=== PATIENT | male | born 1950 | race Caucasian/White ===

== ENCOUNTER 2019-07-02 10:35 | Observation (INO) ==
[2019-07-02] MEDS ORDERED: DILTIAZEM HCL 5 MG/ML VIAL IV ONE (10:59)
[2019-07-02] MEDS ORDERED: ACETAMINOPHEN 500 MG TABLET PO ONE (11:02)
[2019-07-02 11:09] LABS: Hematocrit 51.5 % (42.0-52.0); Hemoglobin 16.9 gm/dL (13.5-18.0); Mean Cell Volume 91.8 fl (78-100); Mean Corpuscular Hemoglobin 30.1 pg (27-31); Mean Corpuscular Hgb Conc 32.8 g/dl (32-36); Mean Platelet Volume 10.3 fl (8-11.3); Neutrophil # 14.6 K/mm3 (1.3-6.0); Neutrophil % 90.6 % (42-75.0); Platelet Count 150 K/mm3 (150-450); Red Blood Count 5.61 M/mm3 (4.7-6.0); Red Cell Distribution Width 13.7 % (11.5-14.0); White Blood Count 16.1 K/mm3 (4.0-10.5)
--- NOTE | 2019-07-02 11:13 | ERNOTE ---
Dyspnea - General Time Seen by Provider: 07/02/19 10:55 Source: patient Exam Limitations: no limitations - Immun/Allergies/Home Medications Immunizations: IMMUNIZATION HX Immunizations Up to Date Yes History of Influenza Vaccine No Hx Pneumococcal Vaccination No Allergies/Adverse Reactions: Allergies meperidine HCl [From Demerol] Adverse Reaction (Verified 07/02/19 14:25) Diarrhea sweaty Home Medications: HOME MEDICATIONS cholecalciferol (vitamin D3) 2,000 unit capsule 2,000 unit PO DAILY 01/03/19 [Last Taken Unknown] coenzyme Q10 100 mg capsule 100 mg PO DAILY 01/03/19 [Last Taken Unknown] vitamin B complex tablet 1 tab PO DAILY 01/03/19 [Last Taken Unknown] rivaroxaban 20 mg tablet 20 mg PO QPM #30 tab 01/22/19 [Last Taken Unknown] rosuvastatin 5 mg tablet 5 mg PO DAILY #90 tab 02/02/19 [Last Taken Unknown] metoprolol succinate ER 100 mg tablet,extended release 24 hr 150 mg PO BID #270 tab 03/01/19 [Last Taken Unknown] - History of Present Illness Narrative: Patient is here as he started to chills when he woke up this morning. He denies any shortness of breath or cough, but coughs a few times while here and has an increased respiratory rate, denies chest pain, no palpitations, no other recent illnesses. 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 Denies: chest pain/discomfort, cough, wheezing Prior Treatment: Denies: recently seen, currently on antibiotics Review of Systems - Review of Systems Constitutional: Present: See HPI, chills. Absent: recent illness ENT: Absent: nose congestion, sore throat Respiratory: Absent: shortness of breath, cough Cardiology: Absent: chest pain Gastrointestinal/Abdominal: Absent: nausea, abdominal pain Genitourinary: Present: no symptoms reported Musculoskeletal: Absent: back pain Neurological: Absent: headache Medical History (Updated 07/02/19 @ 14:24 by Sushma Roque RN) Hypertension (Chronic) Onset Date: Unknown Hyperlipidemia (Chronic) Onset Date: ~2011 Atrial fibrillation (Chronic) Onset Date: Unknown Abdominal aortic aneurysm (AAA) 3.0 cm to 5.5 cm in diameter in male (Chronic) Onset Date: 01/10/18 Kidney stone Lung abscess Onset Date: Unknown as a child Surgical History: Surgical History (Updated 01/03/19 @ 07:29 by Lisa Guzman CMA) History of hernia repair Onset Date: Unknown Family History: Family History (Updated 01/03/19 @ 07:30 by Lisa Guzman CMA) Father Unknown family medical history Mother Dementia Heart disease Social History: (Last Reviewed 07/02/19 @ 14:25 by Sushma Roque RN) Social History: Marital status: lives independently: Yes Service: Yes branch: [employer] Tobacco: Smoking Status: Former smoker Alcohol: alcohol intake: former Substance Use: substance use type: does not use Dietary Habits: caffeine: Yes Physical Exam - Physical Exam General Appearance: Present: wd/wn, alert, no apparent distress, obese Head Exam: Present: normal inspection Eye Exam: Normal inspection: bilateral, PERRL: bilateral Ears, Nose, Throat: Present: normal pharynx Respiratory: Present: no respiratory distress, normal breath sounds, no accessory muscle use, lungs clear, other - increased rate Cardiovascular/Chest: Present: tachycardia, irregularly irregular Gastrointestinal/Abdominal: Present: normal bowel sounds, nontender, nondistended, soft Extremity Exam: Present: no edema Neurological Exam: Present: alert, oriented, normal mood/affect Skin Exam: Present: normal color, warm/dry Progress - Results and Orders Patient's Lab Results:: I have reviewed the patient's lab results. - Vital Signs Patient's Vital Signs:: I have reviewed the patient's vital signs. Vital Signs: Vital Signs 07/02/19 10:35 07/02/19 10:48 07/02/19 10:54 Temperature 39.4 C H Pulse Rate 163 H 163 H 154 H Respiratory Rate 32 H 20 Blood Pressure 186/103 H O2 Sat by Pulse Oximetry 92 L 92 L 07/02/19 11:03 Temperature Pulse Rate 177 H Respiratory Rate Blood Pressure 186/103 H O2 Sat by Pulse Oximetry - EKG EKG #1 EKG: atrial fibrillation, nonspecific ST T wave changes EKG read: Interp. by me - X-Ray X-Ray #1 X-Ray: chest - interstitial prominence Interpretation: Reviewed by me - Progress/Reassessment Chief Complaint: Dyspnea Progress Note-Subjective: 07/02/19 11:00 HR on monitor 150-170, will treat fever with tylenol and cardizem to get HR down 07/02/19 12:48 discussed test result with patient and , patient has infection, lung most likely source though patient has no definite infiltrate with HR initially up to 170 patient would benefit from admission HR currently 120-130 07/02/19 12:53 discussed with chris Manuel to admit for pneumonia and afib with chris CARPIO to start rocephin and zithromax Departure Clinical Impression: Atrial fibrillation with rapid ventricular response Pneumonia Qualifiers: Pneumonia type: due to unspecified organism Laterality: unspecified laterality Lung location: unspecified part of lung Qualified Code(s): J18.9 - Pneumonia, unspecified organism - Departure Disposition: Still a patient Condition: Stable
[2019-07-02 11:34] LABS: ALT 38 U/L (19-67); AST 26 U/L (0-48); Albumin * 3.9 gm/dl (3.4-5.0); Alkaline Phosphatase * 70 U/L (50-170); Anion Gap 15.6 mmol/L (6.8-13.8); BNP * 764 pg/mL (5-350); BUN/Creatinine Ratio 14.9 (9.0-21.6); Bilirubin, Total 0.8 mg/dL (0.0-1.1); Blood Urea Nitrogen 18 mg/dL (6-23); Ca. Corrected For Albumin 8.5 mg/dL (8.4-10.2); Calcium * 8.7 mg/dL (7.9-10.9); Carbon Dioxide 26.7 mmol/L (24-32.6); Chloride 103 mmol/L (97-106); Glucose * 145 mg/dL (70-110); Potassium 4.3 mmol/L (3.4-4.6); Sodium 141 mmol/L (132-142); Total Protein 6.9 gm/dL (6.2-8.2)
[2019-07-02 11:36] LABS: Troponin I Less than 0.017 ng/mL (0.00-0.10)
[2019-07-02 12:31] LABS: Urine Bilirubin Negative (NEGATIVE); Urine Ketone Negative (NEGATIVE); Urine Nitrite Negative (NEGATIVE); Urine Protein Negative (NEGATIVE); Urine Specific Gravity 1.025 SP.GR. (1.005-1.030); Urine Urobilinogen Normal (NORMAL); Urine pH 5.5 pH (5.0-7.0)
[2019-07-02 12:37] LABS: Urine Appearance Clear (CLEAR); Urine Bacteria None Seen; Urine Blood 5 /ul (NEGATIVE); Urine Color Yellow; Urine RBC None Seen /hpf (0-5); Urine WBC None Seen /hpf (0-5)
[2019-07-02] MEDS ORDERED: ACETAMINOPHEN 325 MG TABLET PO PRN (13:23)
[2019-07-02] MEDS ORDERED: AZITHROMYCIN 250 MG TABLET PO STA (13:23)
[2019-07-02] MEDS ORDERED: ALBUTEROL SULFATE 2.5 MG/0.5 ML VIAL.NEB IH PRN (13:36)
[2019-07-02] MEDS ORDERED: FUROSEMIDE 10 MG/ML VIAL IV ONE (18:17)
--- NOTE | 2019-07-02 18:30 | HP ---
Chief Complaint - Chief Complaint Date of Service: 07/02/19 Time of Service: 18:22 Chief Complaint: Shortness of breath, cough, fever with chills History of Present Illness: Mr. Ellis had been in his usual state of health until this morning when he awakened with fever and chills shaking with some cough. He tried to tough it out at home for a few hours but then decided he should come to the emergency room. He is evaluated there and thought to have an interstitial pneumonitis on chest x-ray. He is a very large man and so reading his chest is a bit difficult. He does have rales in both bases posteriorly. His HJR is positive at 45 degrees. He has mild pitting edema above his socks and below the knees. He is morbidly obese with a BMI of 55. Medical History (Updated 07/02/19 @ 14:24 by Sushma Roque RN) Hypertension (Chronic) Onset Date: Unknown Hyperlipidemia (Chronic) Onset Date: ~2011 Atrial fibrillation (Chronic) Onset Date: Unknown Abdominal aortic aneurysm (AAA) 3.0 cm to 5.5 cm in diameter in male (Chronic) Onset Date: 01/10/18 Kidney stone Lung abscess Onset Date: Unknown as a child Surgical History: Surgical History (Updated 01/03/19 @ 07:29 by Lisa Guzman CMA) History of hernia repair Onset Date: Unknown Family History: Family History (Updated 01/03/19 @ 07:30 by Lisa Guzman CMA) Father Unknown family medical history Mother Dementia Heart disease Social History: (Last Reviewed 07/02/19 @ 14:25 by Sushma Roque RN) Social History: Marital status: lives independently: Yes Service: Yes branch: [employer] Tobacco: Smoking Status: Former smoker Alcohol: alcohol intake: former Substance Use: substance use type: does not use Dietary Habits: caffeine: Yes Review Of Systems (GEN) - Review of Systems Generalized/Overall Review: Present: Weakness, Diaphoresis EENTM: Present: No Symptoms Reported Respiratory: Present: Cough, Shortness of Breath, Wheezing Cardiac: Present: No Symptoms Reported Abdominal: Present: No Symptoms Reported Genitourinary: Present: No Symptoms Reported Musculoskeletal: Present: No Symptoms Reported Neurological: Present: No Symptoms Reported Skin: Present: No Symptoms Reported Endocrine: Present: No Symptoms Reported Immunizations: IMMUNIZATION HX Immunizations Up to Date Yes History of Influenza Vaccine No Hx Pneumococcal Vaccination No Allergies/Adverse Reactions: Allergies Allergy/AdvReac Type Severity Reaction Status Date / Time meperidine HCl [From Demerol] AdvReac Diarrhea Verified 07/02/19 14:25 Home Medications: HOME MEDICATIONS cholecalciferol (vitamin D3) 2,000 unit capsule 2,000 unit PO DAILY 01/03/19 [Last Taken Unknown] coenzyme Q10 100 mg capsule 100 mg PO DAILY 01/03/19 [Last Taken Unknown] vitamin B complex tablet 1 tab PO DAILY 01/03/19 [Last Taken Unknown] rivaroxaban 20 mg tablet 20 mg PO QPM #30 tab 01/22/19 [Last Taken Unknown] rosuvastatin 5 mg tablet 5 mg PO DAILY #90 tab 02/02/19 [Last Taken Unknown] metoprolol succinate ER 100 mg tablet,extended release 24 hr 150 mg PO BID #270 tab 03/01/19 [Last Taken Unknown] Exam - Exam Vital Signs: Vital Signs - Last Taken Temp 37 C 07/02/19 14:29 Pulse 118 H 07/02/19 14:29 Resp 24 H 07/02/19 14:29 BP 101/56 07/02/19 14:29 Pulse Ox 93 07/02/19 14:29 Constitutional: Present: Alert, Oriented x3, Cooperative, Well developed, Well nourished, Mild distress ENT Exam: Present: normal ENT inspection, hearing grossly normal, pharynx normal, TMs normal Eye Exam: bilateral eye: normal inspection, PERRL, EOMI Neck: Present: non-tender, full range of motion, supple, normal inspection, trachea midline Back Exam: Present: normal inspection, no CVA tenderness, no vertebral tenderness Breasts: Present: Exam deferred Respiratory: Present: chest non-tender, decreased breath sounds, rales, inspiration Cardiovascular/Chest: Present: normal peripheral pulses, regular rate, rhythm, no chest tenderness, edema Abdomen: Present: Normal bowel sounds, soft, nontender, nondistended, no rebound tenderness, no hepatospenomegaly, no masses, obese /Rectal: Present: Exam deferred, External genitalia normal Extremity: Present: normal range of motion, lower extremity edema, swelling Skin Exam: Present: normal color, warm/dry, no cyanosis Lymphatic: Present: no adenopathy Neurologic: Present: english tutor II-XII nml as tested Appearance: Present: appropriate appearance, appropriate insight, neat, no memory impairment Eye contact: Present: cooperative, good eye contact, normal speech Thoughts: Present: normal thought pattern, no apparent hallucination Diagnostic Studies: Abnormal Lab Results 07/02/19 07/02/19 07/02/19 Range/Units 11:00 11:00 12:08 WBC 16.1 H (4.0-10.5) K/mm3 Immature Gran % (Auto) 0.60 H (0.001-0.429) % Immature Gran # (Auto) 0.09 H (0.000-0.0310) K/mm3 Neutrophils % 90.6 H (42-75.0) % Lymphocytes % 3.6 L (20-51) % Neutrophils # 14.6 H (1.3-6.0) K/mm3 Lymphocytes # 0.58 L (1.5-3.5) k/mm3 Anion Gap 15.6 H (6.8-13.8) mmol/L Random Glucose 145 H (70-110) mg/dL B-Natriuretic Peptide 764 H (5-350) pg/mL Urine Blood 5 H (NEGATIVE) /ul Laboratory Results WBC 16.1 K/mm3 (4.0-10.5) H 07/02/19 11:00 RBC 5.61 M/mm3 (4.7-6.0) 07/02/19 11:00 Hgb 16.9 gm/dL (13.5-18.0) 07/02/19 11:00 Hct 51.5 % (42.0-52.0) 07/02/19 11:00 MCV 91.8 fl (78-100) 07/02/19 11:00 MCH 30.1 pg (27-31) 07/02/19 11:00 MCHC 32.8 g/dl (32-36) 07/02/19 11:00 RDW 13.7 % (11.5-14.0) 07/02/19 11:00 Plt Count 150 K/mm3 (150-450) 07/02/19 11:00 MPV 10.3 fl (8-11.3) 07/02/19 11:00 Immature Gran % (Auto) 0.60 % (0.001-0.429) H 07/02/19 11:00 Immature Gran # (Auto) 0.09 K/mm3 (0.000-0.0310) H 07/02/19 11:00 90.6 % (42-75.0) H 07/02/19 11:00 3.6 % (20-51) L 07/02/19 11:00 4.8 % (0.0-9) 07/02/19 11:00 0.0 % (0.0-3.0) 07/02/19 11:00 0.4 % (0.0-1.0) 07/02/19 11:00 Nucleated RBC % 0.0 k/mm3 (0-1) 07/02/19 11:00 14.6 K/mm3 (1.3-6.0) H 07/02/19 11:00 0.58 k/mm3 (1.5-3.5) L 07/02/19 11:00 0.8 k/mm3 (0.0-1.0) 07/02/19 11:00 0.0 k/mm3 (0.0-0.7) 07/02/19 11:00 Absolute Basophils 0.1 k/mm3 (0.0-0.1) 07/02/19 11:00 Sodium 141 mmol/L (132-142) 07/02/19 11:00 142 mmol/L (130-142) 07/02/19 11:00 Potassium 4.3 mmol/L (3.4-4.6) 07/02/19 11:00 Chloride 103 mmol/L (97-106) 07/02/19 11:00 Carbon Dioxide 26.7 mmol/L (24-32.6) 07/02/19 11:00 15.6 mmol/L (6.8-13.8) H 07/02/19 11:00 BUN 18 mg/dL (6-23) 07/02/19 11:00 1.21 mg/dL (0.4-1.4) 07/02/19 11:00 Est GFR (Non-Af Amer) 63 mL/min (60-130) 07/02/19 11:00 14.9 (9.0-21.6) 07/02/19 11:00 145 mg/dL (70-110) H 07/02/19 11:00 Calcium 8.7 mg/dL (7.9-10.9) 07/02/19 11:00 Calcium Adj for Albumin 8.5 mg/dL (8.4-10.2) 07/02/19 11:00 0.8 mg/dL (0.0-1.1) 07/02/19 11:00 AST 26 U/L (0-48) 07/02/19 11:00 ALT 38 U/L (19-67) 07/02/19 11:00 70 U/L (50-170) 07/02/19 11:00 Less than 0.017 ng/mL (0.00-0.10) 07/02/19 11:00 B-Natriuretic Peptide 764 pg/mL (5-350) H 07/02/19 11:00 6.9 gm/dL (6.2-8.2) 07/02/19 11:00 3.9 gm/dl (3.4-5.0) 07/02/19 11:00 Yellow 07/02/19 12:08 Clear (CLEAR) 07/02/19 12:08 5.5 pH (5.0-7.0) 07/02/19 12:08 Ur Specific [place] 1.025 SP.GR. (1.005-1.030) 07/02/19 12:08 Negative mg/dL (NEGATIVE) 07/02/19 12:08 Negative mg/dL (NEGATIVE) 07/02/19 12:08 Negative mg/dL (NEGATIVE) 07/02/19 12:08 5 /ul (NEGATIVE) H 07/02/19 12:08 Negative (NEGATIVE) 07/02/19 12:08 Negative mg/dl (NEGATIVE) 07/02/19 12:08 Normal EU/dl (NORMAL) 07/02/19 12:08 Ur Leukocyte Esterase Negative /ul (NEGATIVE) 07/02/19 12:08 None seen /hpf (0-5) 07/02/19 12:08 None seen /hpf (0-5) 07/02/19 12:08 Ur Epithelial Cells 0-5 /hpf (0-5) 07/02/19 12:08 None seen (NONE) 07/02/19 12:08 No culture indicated 07/02/19 12:08 Influenza Type A Ag Negative (NEGATIVE) 07/02/19 12:08 Influenza Type B Ag Negative (NEGATIVE) 07/02/19 12:08 Assessment/Plan - Narrative Narrative: 1. Diurese with Lasix 40 mg IV push 2. O2 2 L nasal cannula 3. IV antibiotics 4. RT treatments 5. Haily 6. Home Pap - Assessment/Plan (1) Pneumonia Problem: Acute Qualifiers: Pneumonia type: due to unspecified organism Laterality: unspecified laterality Lung location: unspecified part of lung Qualified Code(s): J18.9 - Pneumonia, unspecified organism (2) CHF (congestive heart failure) Problem: Acute Qualifiers: Heart failure type: diastolic Heart failure chronicity: acute Qualified Code(s): I50.31 - Acute diastolic (congestive) heart failure (3) Atrial fibrillation Problem: Acute Qualifiers: Atrial fibrillation type: longstanding persistent Qualified Code(s): I48.11 - Longstanding persistent atrial fibrillation (4) Hypertension Problem: Chronic Qualifiers: Hypertension type: essential hypertension Qualified Code(s): I10 - Essential (primary) hypertension
[2019-07-02] MEDS ORDERED: FUROSEMIDE 10 MG/ML VIAL ONE (19:35)
[2019-07-02] MEDS: RIVAROXABAN 20 MG TABLET PO SCH (20:41)
[2019-07-02] MEDS: METOPROLOL SUCCINATE 50 MG TABLET.SA PO SCH (21:54)
[2019-07-02] MEDS: METOPROLOL SUCCINATE 100 MG TABLET.SA PO SCH (21:55)
[2019-07-03] MEDS: METOPROLOL SUCCINATE 50 MG TABLET.SA PO SCH (08:28)
[2019-07-03] MEDS: METOPROLOL SUCCINATE 100 MG TABLET.SA PO SCH (08:29)
[2019-07-03] MEDS ORDERED: Coenzyme Q10 100 MG PO SCH (09:00)
[2019-07-03] MEDS ORDERED: CHOLECALCIFEROL 1,000 UNIT CAPSULE PO SCH (09:00)
[2019-07-03] MEDS ORDERED: AZITHROMYCIN 250 MG TABLET PO SCH (09:00)
[2019-07-03] MEDS ORDERED: FLU VACC QS2019-20(6MOS UP)/PF 60 MCG/0.5 ML SYRINGE IM ONE (09:00)
[2019-07-03] MEDS ORDERED: ROSUVASTATIN CALCIUM 10 MG TABLET PO SCH ×2 (09:00→21:00)
[2019-07-03] MEDS ORDERED: VITAMIN B COMP W-C 1 TAB TABLET PO SCH (09:00)
--- NOTE | 2019-07-03 14:40 | DS ---
(1) Pneumonia Problem: Acute Qualifiers: Pneumonia type: due to unspecified organism Laterality: unspecified laterality Lung location: unspecified part of lung Qualified Code(s): J18.9 - Pneumonia, unspecified organism (2) CHF (congestive heart failure) Problem: Acute Qualifiers: Heart failure type: diastolic Heart failure chronicity: acute Qualified Code(s): I50.31 - Acute diastolic (congestive) heart failure (3) Atrial fibrillation Problem: Acute Qualifiers: Atrial fibrillation type: longstanding persistent Qualified Code(s): I48.11 - Longstanding persistent atrial fibrillation (4) Hypertension Problem: Chronic Qualifiers: Hypertension type: essential hypertension Qualified Code(s): I10 - Essent ial (primary) hypertension Date of Discharge:: 07/03/19 Description of Stay: Mr. Ellis had been in his usual state of health until this morning when he awakened with fever and chills shaking with some cough. He tried to tough it out at home for a few hours but then decided he should come to the emergency room. He is evaluated there and thought to have an interstitial pneumonitis on chest x-ray. He is a very large man and so reading his chest is a bit difficult. He does have rales in both bases posteriorly. His HJR is positive at 45 degrees. He has mild pitting edema above his socks and below the knees. He is morbidly obese with a BMI of 55. Mr. Ellis is feeling much better this morning. He had a good night and rested well. He ate good breakfast this morning. He has had no more chest discomfort since admission. He remains in atrial fibrillation but with a controlled ventricular response rate in the 80s. He has walked in the halls without any difficulty or any significant rate change. His disposition is improved. Prognosis is good. In he will be discharged home. He will follow with his PCP within 2 weeks. Procedures Performed: none Results and Findings: Pending Mircobiology Results 07/02/19 13:05 Blood Blood Culture - Preliminary NO GROWTH 24 HOURS 07/02/19 11:00 Blood Blood Culture - Preliminary NO GROWTH 24 HOURS Lab Pending Results 07/02/19 11:00: WBC 16.1 H, RBC 5.61, Hgb 16.9, Hct 51.5, MCV 91.8, MCH 30.1, MCHC 32.8, RDW 13.7, Plt Count 150, MPV 10.3, Immature Gran % (Auto) 0.60 H, Immature Gran # (Auto) 0.09 H, Neutrophils % 90.6 H, Lymphocytes % 3.6 L, Monocytes % 4.8, Eosinophils % 0.0, Basophils % 0.4, Nucleated RBC % 0.0, Neutrophils # 14.6 H, Lymphocytes # 0.58 L, Monocytes # 0.8, Eosinophils # 0.0, Absolute Basophils 0.1 07/02/19 11:00: Sodium 141, Plasma Sodium 142, Potassium 4.3, Chloride 103, Carbon Dioxide 26.7, Anion Gap 15.6 H, BUN 18, Creatinine 1.21, Est GFR (Non-Af Amer) 63, BUN/Creatinine Ratio 14.9, Random Glucose 145 H, Calcium 8.7, Calcium Adj for Albumin 8.5, Total Bilirubin 0.8, AST 26, ALT 38, Alkaline Phosphatase 70, Troponin I Less than 0.017, B-Natriuretic Peptide 764 H, Total Protein 6.9, Albumin 3.9 07/02/19 12:08: Urine Color Yellow, Urine Appearance Clear, Urine pH 5.5, Ur Specific [place] 1.025, Urine Protein Negative, Urine Glucose (UA) Negative, Urine Ketones Negative, Urine Blood 5 H, Urine Nitrate Negative, Urine Bilirubin Negative, Urine Urobilinogen Normal, Ur Leukocyte Esterase Negative, Urine RBC None seen, Urine WBC None seen, Ur Epithelial Cells 0-5, Urine Bacteria None seen, Urine Culture Comments No culture indicated 07/02/19 12:08: Influenza Type A Ag Negative, Influenza Type B Ag Negative Discharge Location: Home Disposition: Home self-care Condition: Stable Face to Face Encounter completed per CMS Guidelines: No Discharge Activity: Activity as tolerated Discharge Diet: Consistent carbs Referrals: Milana Shahid MD [Primary Care Provider] - Problem Oriented Discharge Instructions to Patient/Family: Atrial Fibrillation, [id number], Community-Acquired Pneumonia, Adult, [id number] Additional Patient Instructions (free text): Scheduled to see Dr. Milana Shahid within 2 weeks on 07-13-19 at 1:30pm this is a TCM. I recommend cardiology consultation as well but Dr. Shahid can set that up with whomever she likes to refer. Prescriptions (Any new or edited meds): Cefuroxime Axetil [Ceftin] 500 mg PO BID #20 tab Complete Home Medications List: Complete Home Medication List: cholecalciferol (vitamin D3) 2,000 unit capsule 2,000 unit PO DAILY 01/03/19 coenzyme Q10 100 mg capsule 100 mg PO DAILY 01/03/19 vitamin B complex tablet 1 tab PO DAILY 01/03/19 rivaroxaban 20 mg tablet 20 mg PO QPM #30 tab 01/22/19 rosuvastatin 5 mg tablet 5 mg PO DAILY #90 tab 02/02/19 metoprolol succinate ER 100 mg tablet,extended release 24 hr 150 mg PO BID #270 tab 03/01/19 Acetaminophen [Tylenol] 650 mg PO Q4H PRN tablet 07/03/19 Azithromycin [Zithromax] 250 mg PO DAILY #3 tab 07/03/19 Cefuroxime Axetil [Ceftin] 500 mg PO BID #20 tab 07/03/19
[2019-07-03] MEDS: RIVAROXABAN 20 MG TABLET PO SCH (16:05)
[2019-07-03 17:16] VITALS: BP 156/88
== END 2019-07-03 16:30 | disposition home or self-care (01) ==
LOC: MS 10:35 → ER 10:35 → MS 13:55
PROVIDERS: ADMIT Family Medicine; ATTEND Family Medicine
DX: J18.9 Pneumonia, unspecified organism; Z23 Encounter for immunization; I48.11 Longstanding persistent atrial fibrillation; I10 Essential (primary) hypertension; I50.31 Acute diastolic (congestive) heart failure
CPT/HCPCS: 36415; 71020; 71046; 80053; 81001; 83519; 83880; 84484; 85025; 87040; 87400; 87449; 90686; 93005; 94660; 94760; 96365; 96366; 96375; 99285; G0008; G0378